=== PATIENT | female | born 2005 | race Caucasian/White ===

== ENCOUNTER 2024-01-29 23:25 | Inpatient (IN) ==
[2024-01-30] MEDS ORDERED: ACETAMINOPHEN 500 MG TAB PO PRN (00:06)
[2024-01-30] MEDS ORDERED: CALCIUM CARBONATE 500 MG CHEWABLE TAB PO PRN (00:06)
[2024-01-30] MEDS ORDERED: LIDOCAINE 1% LOCAL 20 ML VIAL INFIL PRN (00:06)
[2024-01-30] MEDS ORDERED: OXYTOCIN 30 UNITS/NSS 30 UNITS/500 ML BAG IV PRN ×2 (00:06→07:06)
--- NOTE | 2024-01-30 00:09 | History & Physical Report ---
Date of Service January 30, 2024 Assessment & Plan (1) Supervision of normal intrauterine in primigravida: Plan: Admit to L&D. EFM/toco. Labs. Desires epidural. History of Present Illness Chief Complaint: contractions Primary Care Provider: Jazlyn Barron, DO 18yo @ 38 10/05, presented to L&D with contractions and leaking clear fluid. Allergies Allergy/AdvReac Type Severity Reaction Status Date / Time No Known Allergies Allergy Mild Verified 01/29/24 23:43 Home Medications Medication Instructions Recorded Confirmed Type vit 168-iron 27 mg-folic 1 cap PO DAILY 07/04/23 01/29/24 History acid 800 mcg-omega3 235 mg capsule (One-A-Day -1) Patient History Surgical History H/O knee surgery Family History Other Diabetes Social History Smoking Status: Never smoker Second Hand Exposure: No; Do You Dip or Chew Tobacco: No; Hx Alcohol Use: No Hx Substance Use: No Preferred Language: [place]er Communication Ability: Effective Lan Engineer Required: No Beliefs That Will Affect Care: None marital status: Single marital status details: Tom (23) [phone] Current Living Situation: Parent and Family Current Living Situation Comment: Mother, Father, and FOB- Sebastien current occupational status: employed 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 Other Information That Helps Us Care for You: No Feels Safe at Home: Yes Safety Concerns: Feels Safe At This Time Assistive Devices: Glasses Review of Systems All systems reviewed & are unremarkable except as noted in HPI & below Physical Exam Physical Exam: FHT Cat 1 Pelzer Q 5 SVE 3-4/75/-2 per RN, grossly ruptured Constitutional: WD/WN, vitals as above Respiratory: normal respiratory effort, lungs clear to auscultation no respiratory distress Cardiovascular: Rate/Rhythm: regular rate and regular rhythm Gastrointestinal (Abdomen): Inspection/Auscultation: abdomen normal to inspection Percussion/Palpation: abdomen soft; abdomen nontender Gravid. No s/s chorio or abruption. Skin: no rashes, warm and dry Psychiatric: A+Ox3, euthymic affect Results & Data Vital Signs (Past 12 Hours) Vital Signs Temp Pulse Resp BP O2 Del Method 01/29/24 23:44 37.1 C 89 18 118/63 Room Air 01/29/24 23:38 37.1 C 89 18 118/63 Coding Level of Care Code None Diagnoses Supervision of normal intrauterine in primigravida Z34.00
[2024-01-30] MEDS ORDERED: ePHEDrine sulfate 50 MG/ML AMP ONE (00:24)
[2024-01-30 00:32] LABS: Hematocrit (blood only) 35.1 % (37.0-47.0); Hemoglobin 11.9 g/dl (12.0-16.0); Mean Corpuscular Hgb Conc 33.9 g/dL (32.0-36.0); Mean Corpuscular Volume 82.6 fL (80.0-100.0); Platelet Count 252 K/uL (130-400); RDW Coefficient of Variation 13.7 % (11.5-14.5); RDW Standard Deviation 40.3 fL (36.4-46.3); Red Blood Count 4.25 M/uL (4.20-5.40); White Blood Count 9.79 K/ul (4.8-10.8)
[2024-01-30] MEDS: LACTATED RINGER'S 1,000 ML IV PRN (00:53)
[2024-01-30] MEDS: fentANYL 2 MCG/ML BUPIVacaine 0.125%-NSS 100ML BAG ONE (01:35)
[2024-01-30] MEDS: BUPIVACAINE 0.25% PF 30 ML VIAL ONE (01:39)
[2024-01-30] MEDS: LIDOCAINE 2%/EPINEPHRINE 1:200,000 20 ML PF ONE (01:42)
--- NOTE | 2024-01-30 01:47 | Anesthesiology Consultation ---
Date of Service January 30, 2024 Assessment & Plan Chart Review Chart Review: Acceptable Risk for Labor Epidural Consults Requested none History Height/Weight Height: 5 ft 3 in Weight: 74.843 kg Allergies Allergy/AdvReac Type Severity Reaction Status Date / Time No Known Allergies Allergy Mild Verified 01/29/24 23:43 Medications Home Medications Medication Instructions Recorded Confirmed Last Taken vit 168-iron 27 mg-folic 1 cap PO DAILY 07/04/23 01/29/24 01/27/24 09:00 acid 800 mcg-omega3 235 mg capsule (One-A-Day -1) Active Medications Generic Name Dose Route Start Last Admin Trade Name Freq PRN Reason Stop Dose Admin Lactated Ringer's 1,000 mls @ 125 mls/hr 01/30/24 00:06 01/30/24 01:23 Lr IV 02/01/24 00:05 125 mls/hr .Q8H PRN Infusion L&D Protocol Protocol Past Family History Family History Other Diabetes Past Surgical History Surgical History H/O knee surgery Social History Smoking Status: Never smoker Do You Dip or Chew Tobacco: No Hx Alcohol Use: No Hx Substance Use: No substance use type: does not use Physical Exam Vital Signs Last Vital Signs Temp 37.1 C 01/29/24 23:44 Pulse 71 01/30/24 01:45 Resp 18 01/29/24 23:44 BP 109/68 01/30/24 01:45 Pulse Ox 98 01/30/24 01:41 O2 Del Method Room Air 01/29/24 23:44 Testing Laboratory Results 01/30/24 00:14
[2024-01-30] MEDS ORDERED: LIDOCAINE 2% MPF LOCAL 5 ML VIAL EPI PRN (01:48)
[2024-01-30] MEDS ORDERED: BUPIVACAINE 0.25% PF 30 ML VIAL EPI PRN (01:48)
[2024-01-30] MEDS ORDERED: NALOXONE HCL 0.4 MG/1 ML VIAL/CARP IV PRN (01:48)
[2024-01-30] MEDS ORDERED: NALBUPHINE HCL 5 MG in SYRINGE 0 ML IV PRN (01:48)
[2024-01-30] MEDS ORDERED: fentANYL 2 MCG/ML BUPIVacaine 0.125%-NSS 100ML BAG EPI PRN (01:48)
[2024-01-30] MEDS ORDERED: NALOXONE HCL 1 MG in SODIUM CHLORIDE 0.9% 1,000 ML IV PRN (01:48)
[2024-01-30] MEDS ORDERED: fentaNYL citrate PF 100 MCG/2 ML VIAL EPI PRN (01:48)
[2024-01-30] MEDS ORDERED: ROPIVACAINE 0.5% PF 5 MG/ML 20 ML VIAL EPI PRN (01:48)
[2024-01-30] MEDS ORDERED: diphenhydrAMINE 50 MG/ML VIAL IV PRN (01:48)
[2024-01-30] MEDS ORDERED: ePHEDrine sulfate 50 MG/ML AMP IV PRN (01:48)
[2024-01-30] MEDS ORDERED: SODIUM CHLORIDE 0.9% PF INJ 10 ML VIAL EPI PRN (01:48)
[2024-01-30] MEDS: OXYTOCIN 30 UNITS/NSS 30 UNITS/500 ML BAG IV PRN (04:20)
[2024-01-30] MEDS: fentaNYL citrate PF 100 MCG/2 ML VIAL ONE (04:59)
[2024-01-30] MEDS: SODIUM CHLORIDE 0.9% PF INJ 10 ML VIAL ONE (04:59)
[2024-01-30] MEDS: BUPIVACAINE 0.25% PF 30 ML VIAL EPI STA (05:00)
[2024-01-30] MEDS: LIDOCAINE 2%/EPINEPHRINE 1:200,000 20 ML PF EPI STA (05:00)
[2024-01-30] MEDS: SODIUM CHLORIDE 0.9% PF INJ 10 ML VIAL EPI STA (05:00)
[2024-01-30] MEDS: fentaNYL citrate PF 100 MCG/2 ML VIAL EPI STA (05:00)
--- NOTE | 2024-01-30 06:14 | Labor Progress Brief Note ---
Date of Service January 30, 2024 Subjective Feeling urge to push. FHT Cat 155, mod gaudencio, +accels, occ variables and late decels in the past 30 minutes - not recurrent SVE 10/100/+2 Actively pushing. Continue pushing. Anticipate . Assessment & Plan Admission and Anticipated Discharge Date Admission Date: January 30, 2024 Results & Data Vital Signs (Past 12 Hours) Vital Signs Temp Pulse Resp BP Pulse Ox O2 Del Method 01/30/24 06:11 82 97 01/30/24 06:07 98 H 92 01/30/24 06:06 98 H 94 01/30/24 06:01 85 98 01/30/24 05:59 89 120/83 01/30/24 05:56 120 H 98 01/30/24 05:51 75 99 01/30/24 05:46 70 98 01/30/24 05:45 69 115/73 01/30/24 05:41 74 99 01/30/24 05:36 72 98 01/30/24 05:31 68 97 01/30/24 05:30 16 01/30/24 05:30 16 01/30/24 05:29 66 110/66 01/30/24 05:26 69 98 01/30/24 05:21 77 98 01/30/24 05:16 88 99 01/30/24 05:14 69 103/58 L 01/30/24 05:11 74 98 01/30/24 05:06 72 97 01/30/24 05:01 82 98 01/30/24 05:00 16 01/30/24 05:00 16 01/30/24 04:59 70 112/71 01/30/24 04:56 85 100 01/30/24 04:51 71 98 01/30/24 04:46 69 99 01/30/24 04:45 68 115/73 01/30/24 04:41 74 98 01/30/24 04:36 73 99 01/30/24 04:31 72 98 01/30/24 04:30 18 01/30/24 04:30 18 01/30/24 04:29 68 111/68 01/30/24 04:26 72 99 01/30/24 04:21 70 99 01/30/24 04:16 70 99 01/30/24 04:14 68 115/61 01/30/24 04:11 70 99 01/30/24 04:06 74 99 01/30/24 04:01 76 99 01/30/24 04:00 16 01/30/24 04:00 36.9 C 16 01/30/24 03:59 74 130/68 01/30/24 03:56 70 98 01/30/24 03:51 89 98 01/30/24 03:46 68 99 01/30/24 03:45 67 107/60 01/30/24 03:41 84 99 01/30/24 03:36 65 98 01/30/24 03:31 70 98 01/30/24 03:29 74 117/70 01/30/24 03:26 72 98 01/30/24 03:21 66 98 01/30/24 03:16 70 99 01/30/24 03:14 65 118/70 01/30/24 03:11 72 99 01/30/24 03:06 69 99 01/30/24 03:01 67 99 01/30/24 03:00 69 16 115/72 01/30/24 02:56 72 99 01/30/24 02:51 68 99 01/30/24 02:46 71 99 01/30/24 02:44 75 115/70 01/30/24 02:41 71 98 01/30/24 02:36 72 99 01/30/24 02:31 67 98 01/30/24 02:30 16 01/30/24 02:30 16 01/30/24 02:29 71 117/71 01/30/24 02:26 68 98 01/30/24 02:21 66 98 01/30/24 02:16 66 98 01/30/24 02:14 67 118/71 01/30/24 02:11 68 99 01/30/24 02:06 71 99 01/30/24 02:01 79 98 01/30/24 02:00 16 01/30/24 02:00 16 01/30/24 01:58 74 114/70 01/30/24 01:56 74 99 01/30/24 01:53 82 102/59 L 01/30/24 01:51 85 99 01/30/24 01:47 75 111/65 01/30/24 01:46 83 99 01/30/24 01:45 36.7 C 71 109/68 01/30/24 01:43 73 118/65 01/30/24 01:41 73 111/72 98 01/30/24 01:39 75 111/69 01/30/24 01:38 80 121/68 01/30/24 01:36 79 98 01/30/24 01:31 90 99 01/30/24 01:26 99 H 100 01/30/24 01:21 74 98 01/30/24 01:16 71 98 01/30/24 01:11 73 98 01/30/24 01:06 72 98 01/30/24 01:01 74 98 01/30/24 00:56 87 97 01/29/24 23:44 37.1 C 89 18 118/63 Room Air 01/29/24 23:38 37.1 C 89 18 118/63 Coding Level of Care Code None
[2024-01-30] MEDS ORDERED: HYDROCORTISONE ACETATE 25 MG SUPP PR PRN (07:06)
[2024-01-30] MEDS ORDERED: oxyCODONE/ACETAMINOPHEN 5mg/325mg TAB PO PRN (07:06)
[2024-01-30] MEDS ORDERED: IBUPROFEN 600 MG TAB PO PRN (07:06)
[2024-01-30] MEDS ORDERED: ACETAMINOPHEN 325 MG TAB PO PRN (07:06)
[2024-01-30] MEDS ORDERED: bisacodyL 10 MG SUPP PR PRN (07:06)
--- NOTE | 2024-01-30 07:06 | Delivery Summary ---
Vaginal Delivery Summary Date of Service January 30, 2024 Vaginal Delivery Summary and 2nd Degree LAC Vaginal Delivery Summary: Pre-delivery diagnoses: 18yo @ 40 2/7, spontaneous labor Post-delivery diagnoses: same Procedure: spontaneous vaginal delivery, repair of 2nd degree perineal laceration Surgeon: Blanca Will DO Complications: none Findings: Viable male . Apgars: 8/9 . Weight pending, please see nursery records Estimated quantitative blood loss: 128cc Description of delivery: The patient progressed to complete with epidural anesthesia. She then began to push. She spontaneously vaginally delivered a viable from the cephalic presentation. The head delivered in ESTRADA position. The anterior shoulder delivered, followed by the posterior shoulder and hand, followed by the body. The baby was placed on mother's abdomen and a s pontaneous cry was heard. Delayed cord clamping was employed, and the cord was doubly clamped and cut. Cord blood was obtained. The placenta was delivered spontaneously intact with a 3-vessel cord. The uterus and vagina were swept of clots and debris. IV pitocin was given. The uterus became firm. The cervix, vagina, and perineum were inspected and a 2nd degree perineal laceration was noted. A figure of eight suture of 3-0 Chromic was used to support the intact anal sphincter. The remaining laceration was repaired with 3-0 Vicryl in standard fashion. Excellent hemostasis was observed. The mother and baby are recovering in stable and good condition in the room. Sponge, needle and instrument counts were correct x 2. Blanca Will DO [facility] [place] Vaginal Delivery Charge Vaginal Delivery Codes: 20297 global code for the antepartum, delivery, and post- Delivery Type Details: and 2nd Degree LAC
--- NOTE | 2024-01-30 07:09 | Anesthesia Procedure Note ---
Date of Service January 30, 2024 Anesthesia Post Epidural Note Vital Signs Vital Signs: Temp Pulse Resp BP Pulse Ox O2 Del Method 36.8 C 87 16 121/83 96 Room Air 01/30/24 06:45 01/30/24 06:59 01/30/24 06:45 01/30/24 06:59 01/30/24 06:46 01/29/24 23:44 Notes Mental Status: alert / awake / arousable Nausea / Vomiting: adequately controlled Pain: adequately controlled Airway Patency, RR, SpO2: stable & adequate BP & HR: stable & adequate Hydration State: stable & adequate Neuraxial Anesthesia: was administered and sensory block is resolving Anesthetic Complications: no major complications apparent and Pt Satisfied with anesthetic care Epidural: Removed without complications and With tip intact
[2024-01-30] MEDS: PRENATAL VITAMIN 1 TAB PO SCH (10:03)
[2024-01-30] MEDS: BENZOCAINE 20% SPRY 85 APPLN/85 GM CAN EXT PRN (10:03)
[2024-01-30] MEDS: DIPHTHER/TETAN/PERTUS Vaccine (Tdap, Adol/Adult) 0.5mL IM ONE (10:04)
[2024-01-30] MEDS: DOCUSATE SODIUM 100 MG CAP PO SCH (10:04)
[2024-01-30] MEDS ORDERED: ACETAMINOPHEN SUSP 325 MG/10.15 ML UDC PO PRN (16:57)
[2024-01-30] MEDS ORDERED: Nursing to Pharmacy Communication SCH (17:00)
[2024-01-30] MEDS: IBUPROFEN 200 MG/10 ML UDC PO PRN (17:22)
[2024-01-30] MEDS: DOCUSATE SODIUM SYRUP 100 MG/10 ML UDC PO SCH (20:54)
--- NOTE | 2024-01-31 05:40 | Obstetrical Progress Note ---
Date of Service January 31, 2024 Assessment & Plan (1) Encounter for care and examination after delivery: Plan 18 y/o PPD #1 s/p Doing well Encourage ambulation Vial signs reviewed Pain control Encourage Rubella immune, BGT: A+ Continue post care Admission and Anticipated Discharge Date Admission Date: January 30, 2024 Supervising Physician Co-Signing Physician Notes Resident Physician Supervision Note: I interviewed and examined the patient. Discussed with Dr. Arroyo and agree with findings and plan as documented in the note. Any exceptions or clarifications are listed here: Doing well. Just now 24 hours from delivery. Working on breast feeding. Plan d/c home tomorrow. Documented By: Jo Ann Spring MD, FACOG Subjective 18 yo G1Po post- day 1 s/p Ambulation: ambulating normally Voiding: no voiding problems Passing Gas:: Yes Diet Tolerance:: regular diet Lochia:: Small Feeding Type: breast feeding Current Pain Level: mild Resting comfortably this AM in NAD. Denies HENRY, CP, SOB, N/V/D, LE pain/swelling. Review of Systems Review of Systems: as per hpi Physical Exam Physical Exam: General: patient resting comfortably, NAD, non-toxic in appearance, AA&O x 4, answers questions appropriately. Skin: warm, dry, intact Heart: +S1/S2, regular, no m/r/g Lungs: equal air entry bilaterally, no rales/rhonchi/wheezes Abd: +BS, soft, NT/ND, uterine fundus firm at umbilicus Ext: warm, no clubbing/cyanosis or edema, Yamilex's neg. Neuro: nonfocal, patient AA&O x 4, speech intact, no facial droop, moving all extremities on command. Results & Data Vital Signs (Past 12 Hours) Vital Signs Temp Pulse Resp BP Pulse Ox O2 Del Method 01/31/24 03:58 36.5 C 82 18 109/73 97 Room Air 01/31/24 00:10 36.7 C 74 18 98/61 L 97 Room Air 01/30/24 19:50 36.8 C 82 20 96 Room Air Resident Activity Tracking Resident Involvement: Resident Care Provided Care Provided: OB Delivery
[2024-01-31 07:12] LABS: Hemoglobin 10.5 g/dl (12.0-16.0)
[2024-01-31] MEDS: bisacodyL 5 MG TABEC PO SCH (20:36)
--- NOTE | 2024-02-01 06:25 | Obstetrical Progress Note ---
Date of Service February 01, 2024 Assessment & Plan (1) Encounter for care and examination after delivery: Plan 18 y/o PPD #2 s/p Doing well Encourage ambulation Vial signs reviewed Pain control Encourage Rubella immune, BGT: A+ Discharge home today, instructions reviewed. Follow up in 6 weeks in office Admission and Anticipated Discharge Date Admission Date: January 30, 2024 Supervising Physician Co-Signing Physician Notes Patient seen with resident and agree with the above findings and plan. Doing well and stable for discharge Subjective 18 yo post- day 2 s/p Ambulation: ambulating normally Voiding: no voiding problems Passing Gas:: Yes Diet Tolerance:: regular diet Lochia:: Small Feeding Type: breast feeding Current Pain Level: mild Resting comfortably this AM in NAD. Denies HENRY, CP, SOB, N/V/D, LE pain/swelling. Review of Systems Review of Systems: as per hpi Physical Exam Physical Exam: General: patient resting comfortably, NAD, non-toxic in appearance, AA&O x 4, answers questions appropriately. Skin: warm, dry, intact Heart: +S1/S2, regular, no m/r/g Lungs: equal air entry bilaterally, no rales/rhonchi/wheezes Abd: +BS, soft, NT/ND, uterine fundus firm at umbilicus Ext: warm, no clubbing/cyanosis or edema, Yamilex's neg. Neuro: nonfocal, patient AA&O x 4, speech intact, no facial droop, moving all extremities on command. Results & Data Vital Signs (Past 12 Hours) Vital Signs Temp Pulse Resp BP Pulse Ox O2 Del Method 02/01/24 00:05 36.6 C 78 18 104/66 97 Room Air 01/31/24 19:15 36.5 C 90 18 109/67 97 Room Air Resident Activity Tracking Resident Involvement: Resident Care Provided Care Provided: OB Delivery
== END 2024-02-01 11:30 | disposition home or self-care (01) | DRG 807 ==
LOC: OPB 23:25 → 4S1 23:28 → 4E2 01-30 09:46